=== PATIENT | female | born 1985 | race Caucasian/White ===

== ENCOUNTER 2020-06-17 14:51 | Observation (INO) | payer MEDICAID ==
[2020-06-17] MEDS ORDERED: Sodium Chloride 0.9% 10 ML SDV IV PRN (15:01)
[2020-06-17] MEDS ORDERED: Sodium Chloride 0.9% 2.5 ML Syringe FLUSH PRN (15:01)
[2020-06-17] MEDS ORDERED: Sodium Chloride 0.9% 10 ML Syringe FLUSH PRN (15:01)
[2020-06-17] MEDS ORDERED: Acetaminophen 500 MG Tab PO PRN (15:10)
[2020-06-17] MEDS ORDERED: Lactated Ringers 1,000 ML IV SCH (15:15)
[2020-06-17] MEDS: PRENATAL MULTI PO SCH (19:43)
[2020-06-17] MEDS: DHA PO SCH (19:43)
[2020-06-18 06:30] LABS: BLOOD UREA NITROGEN,BUN 7 mg/dL (7.0-18.0); CARBON DIOXIDE,CO2 20.5 mmol/L (21.0-32.0); CHLORIDE,CL 104 mmol/L (98-107); GLUCOSE RANDOM 126 mg/dL (74-106); POTASSIUM,K 3.6 mmol/L (3.5-5.1); SODIUM,NA 138 mmol/L (136-145)
[2020-06-18] MEDS ORDERED: Magnesium Oxide 400 MG Tab PO SCH (09:00)
[2020-06-18] MEDS ORDERED: Magnesium Oxide 400 MG Tab PO PRN (10:36)
--- NOTE | 2020-06-18 10:50 | PCM.PN ---
- General Info Date of Service: 06/18/20 Functional Status: Reports: Tolerating Diet, Ambulating, Urinating, Other (BP 120-140s/70-80s. Having mild persistent headache, has not improved with tylenol and magnesium. Having stronger contractions starting last night, every 7-10min. ) - Review of Systems General: Reports: Other (headache) HEENT: Reports: No Symptoms Pulmonary: Reports: No Symptoms Cardiovascular: Reports: No Symptoms Gastrointestinal: Reports: No Symptoms Genitourinary: Reports: No Symptoms Musculoskeletal: Reports: No Symptoms Skin: Reports: No Symptoms Neurological: Reports: No Symptoms Psychiatric: Reports: No Symptoms - Patient Data Weight - Most Recent: 194 lb 11.2 oz I&O - Last 24 Hours: Intake & Output 06/17/20 06/18/20 06/18/20 22:59 06:59 14:59 Intake Total 1056 570 Output Total 845 150 Balance 211 420 Lab Results Last 24 Hours: Laboratory Results - last 24 hr 06/17/20 06/18/20 06/18/20 Range/Units 14:58 05:39 05:39 WBC 14.79 H (4.0-11.0) K/uL RBC 3.93 L (4.30-5.90) M/uL Hgb 11.6 L (12.0-16.0) g/dL Hct 37.1 (36.0-46.0) % MCV 94.4 (80.0-98.0) fL MCH 29.5 (27.0-32.0) pg MCHC 31.3 (31.0-37.0) g/dL RDW Std Deviation 57.6 (28.0-62.0) fl RDW Coeff of Jonelle 17 H (11.0-15.0) % Plt Count 339 (150-400) K/uL MPV 9.30 (7.40-12.00) fL Nucleated RBC % 0.0 /100WBC Nucleated RBCs # 0 K/uL Sodium 138 (136-145) mmol/L Potassium 3.6 (3.5-5.1) mmol/L Chloride 104 (98-107) mmol/L Carbon Dioxide 20.5 L (21.0-32.0) mmol/L BUN 7 (7.0-18.0) mg/dL Creatinine 0.6 (0.6-1.0) mg/dL Est Cr Clr Drug Dosing 105.48 mL/min Estimated GFR (MDRD) > 60.0 ml/min Glucose 126 H (74-106) mg/dL Uric Acid 3.9 (2.6-7.2) mg/dL Calcium 9.0 (8.5-10.1) mg/dL Total Bilirubin 0.8 (0.2-1.0) mg/dL AST 13 L (15-37) IU/L ALT 13 L (14-63) IU/L Alkaline Phosphatase 117 H (46-116) U/L Total Protein 6.5 (6.4-8.2) g/dL Albumin 2.8 L (3.4-5.0) g/dL Globulin 3.7 (2.6-4.0) g/dL Albumin/Globulin Ratio 0.8 L (0.9-1.6) Ur Random Creatinine mg/dL U Random Total Protein (<11.9) mg/dL Protein/Creatinin Ratio COVID-19 (SAUL) NEGATIVE (NEGATIVE) 06/18/20 Range/Units 06:25 WBC (4.0-11.0) K/uL RBC (4.30-5.90) M/uL Hgb (12.0-16.0) g/dL Hct (36.0-46.0) % MCV (80.0-98.0) fL MCH (27.0-32.0) pg MCHC (31.0-37.0) g/dL RDW Std Deviation (28.0-62.0) fl RDW Coeff of Jonelle (11.0-15.0) % Plt Count (150-400) K/uL MPV (7.40-12.00) fL Nucleated RBC % /100WBC Nucleated RBCs # K/uL Sodium (136-145) mmol/L Potassium (3.5-5.1) mmol/L Chloride (98-107) mmol/L Carbon Dioxide (21.0-32.0) mmol/L BUN (7.0-18.0) mg/dL Creatinine (0.6-1.0) mg/dL Est Cr Clr Drug Dosing mL/min Estimated GFR (MDRD) ml/min Glucose (74-106) mg/dL Uric Acid (2.6-7.2) mg/dL Calcium (8.5-10.1) mg/dL Total Bilirubin (0.2-1.0) mg/dL AST (15-37) IU/L ALT (14-63) IU/L Alkaline Phosphatase (46-116) U/L Total Protein (6.4-8.2) g/dL Albumin (3.4-5.0) g/dL Globulin (2.6-4.0) g/dL Albumin/Globulin Ratio (0.9-1.6) Ur Random Creatinine 107.3 mg/dL U Random Total Protein 35.8 H (<11.9) mg/dL Protein/Creatinin Ratio 0.3 COVID-19 (SAUL) (NEGATIVE) Med Orders - Current: Current Medications Acetaminophen (Tylenol Extra Strength) 1,000 mg PO Q6H PRN PRN Reason: Pain Acetaminophen/Butalbital/Caffeine (Fioricet 325-50-40 Mg) 1 tab PO Q8H PRN PRN Reason: Headache Betamethasone Acet/Betameth SodPhos (Celestone Soluspan 6 Mg/Ml) 12 mg IM ONETIME ONE Stop: 06/18/20 14:01 Magnesium Oxide (Magnesium Oxide) 400 mg PO DAILY [facility] Magnesium Oxide (Magnesium Oxide) 400 mg PO BID PRN PRN Reason: Headache Multi 200mg (Dha) 1 each PO DAILY [facility] Last Admin: 06/17/20 19:43 Dose: 1 each Documented by: Sodium Chloride (Saline Flush) 10 ml FLUSH ASDIRECTED PRN PRN Reason: Keep Vein Open Sodium Chloride (Saline Flush) 2.5 ml FLUSH ASDIRECTED PRN PRN Reason: Keep Vein Open Sodium Chloride (Normal Saline) 10 ml IV ASDIRECTED PRN PRN Reason: IV Use - Exam General: Alert, Oriented, Cooperative, No Acute Distress HEENT: Pupils Equal, Pupils Reactive Neck: Supple, Trachea Midline, No JVD Lungs: Normal Respiratory Effort GI/Abdominal Exam: Soft, Non-Tender Back Exam: Normal Inspection, Full Range of Motion Extremities: Normal Inspection, Normal Range of Motion, Non-Tender, Pedal Edema (1+) Skin: Warm, Dry, Intact Wound/Incisions: Healing Well Neurological: No New Focal Deficit Psy/Mental Status: Alert, Normal Affect, Normal Mood Sepsis Event Note - Evaluation Sepsis Screening Result: No Definite Risk - Problem List Review Problem List Initiated/Reviewed/Updated: Yes - My Orders Last 24 Hours: My Active Orders 06/18/20 10:34 Acetaminophen/Butalbital/Caff [Fioricet 325-50-40 MG] 1 tab PO Q8H PRN 06/18/20 10:36 Magnesium Oxide 400 mg PO BID PRN - Assessment Assessment:: 35yo at 36w1d admitted to OBS for preeclampsia without severe features. Stable currently. - Plan Plan:: - BP normotensive to borderline mild range - preeclampsia labs wnl, protein/cr ratio of 0.3, stable from yesterday - has persistent mild headache, on magnesium, will add fioricet PRN - reactive NST - beta #2 today Will continue to monitor closely inpatient.
[2020-06-18] MEDS ORDERED: Betamethasone Acetate/Betamethasone Sod Phosphate 30 MG/5 ML MDV IM ONE (14:00)
[2020-06-18] MEDS: Acetaminophen/Butalbital/Caffeine 325-50-40 MG Tab PO PRN (15:41)
[2020-06-19] MEDS: Acetaminophen/Butalbital/Caffeine 325-50-40 MG Tab PO PRN (00:11)
[2020-06-19] MEDS: PRENATAL MULTI PO SCH (00:12)
[2020-06-19] MEDS: DHA PO SCH (00:12)
--- NOTE | 2020-06-19 08:46 | PCM.PN ---
<Kayla Trimble - Last Filed: 06/19/20 08:46> - General Info Date of Service: 06/19/20 Admission Dx/Problem (Free Text): antepartum pre-eclampsia Subjective Update: C/o dizziness, occasional floaters, fran hsieh contractions, and some nausea Functional Status: Reports: Pain Controlled, Tolerating Diet Pain Score: 8 (headache) - Review of Systems General: Reports: No Symptoms HEENT: Reports: No Symptoms Pulmonary: Reports: No Symptoms Cardiovascular: Reports: No Symptoms Gastrointestinal: Reports: Nausea Genitourinary: Reports: No Symptoms Musculoskeletal: Reports: No Symptoms Skin: Reports: No Symptoms Neurological: Reports: Dizziness, Headache Psychiatric: Reports: No Symptoms - Patient Data Vitals - Most Recent: T 97.5, P 96, R 20, BP 131/73, O2 97% Weight - Most Recent: 194 lb 9.6 oz I&O - Last 24 Hours: Intake & Output 06/18/20 06/19/20 06/19/20 22:59 06:59 14:59 Intake Total 720 1000 Output Total 800 950 Balance -80 50 Med Orders - Current: Current Medications Acetaminophen (Tylenol Extra Strength) 1,000 mg PO Q6H PRN PRN Reason: Pain Last Admin: 06/18/20 22:55 Dose: 1,000 mg Documented by: Acetaminophen/Butalbital/Caffeine (Fioricet 325-50-40 Mg) 1 tab PO Q8H PRN PRN Reason: Headache Last Admin: 06/19/20 00:11 Dose: 1 tab Documented by: Magnesium Oxide (Magnesium Oxide) 400 mg PO DAILY [facility] Last Admin: 06/18/20 14:10 Dose: Not Given Documented by: Multi 200mg (Dha) 1 each PO DAILY [facility] Last Admin: 06/19/20 00:12 Dose: 1 each Documented by: Sodium Chloride (Saline Flush) 10 ml FLUSH ASDIRECTED PRN PRN Reason: Keep Vein Open Sodium Chloride (Saline Flush) 2.5 ml FLUSH ASDIRECTED PRN PRN Reason: Keep Vein Open Sodium Chloride (Normal Saline) 10 ml IV ASDIRECTED PRN PRN Reason: IV Use Discontinued Medications Betamethasone Acet/Betameth SodPhos (Celestone Soluspan 6 Mg/Ml) 12 mg IM ONETIME ONE Stop: 06/18/20 14:01 Last Admin: 06/18/20 13:52 Dose: 12 mg Documented by: Magnesium Oxide (Magnesium Oxide) 400 mg PO BID PRN PRN Reason: Headache - Exam General: Alert, Oriented, Cooperative, No Acute Distress HEENT: Mucous Membr. Moist/[place] Neck: Supple Lungs: Clear to Auscultation Cardiovascular: Regular Rate, Regular Rhythm, No Murmurs GI/Abdominal Exam: Soft, Non-Tender, Other (gravid) (Female) Exam: Deferred Back Exam: Full Range of Motion Extremities: Normal Inspection, Pedal Edema (trace) Peripheral Pulses: 2+: Brachial (L), Brachial (R), Dorsalis Pedis (L), Dorsalis Pedis (R) Skin: Warm, Dry Neurological: No New Focal Deficit, Normal Speech Psy/Mental Status: Alert, Normal Affect, Normal Mood Sepsis Event Note - Evaluation Sepsis Screening Result: No Definite Risk - Problem List & Annotations (1) Pre-eclampsia during in third trimester, antepartum SNOMED Code(s): 125097899, 385363175 Code(s): O14.93 - UNSPECIFIED PRE-ECLAMPSIA, THIRD TRIMESTER Status: Acute Current Visit: Yes - Problem List Review Problem List Initiated/Reviewed/Updated: Yes - Assessment Assessment:: 35yo at 36w2d admitted to OBS for preeclampsia without severe features. Stable currently. - Plan Plan:: - BP normotensive to borderline mild range - preeclampsia labs wnl, protein/cr ratio of 0.3, stable from yesterday - has persistent mild headache, taking fiorcet PRN (last dose 06/19 at 0011) - reactive NST - received beta #2 on 06/18 Will continue to monitor closely inpatient. <Bay Parker - Last Filed: 06/19/20 10:31> - Patient Data I&O - Last 24 Hours: Intake & Output 06/18/20 06/19/20 06/19/20 22:59 06:59 14:59 Intake Total 720 1000 350 Output Total 800 950 Balance -80 50 350 Med Orders - Current: Current Medications Acetaminophen (Tylenol Extra Strength) 1,000 mg PO Q6H PRN PRN Reason: Pain Last Admin: 06/18/20 22:55 Dose: 1,000 mg Documented by: Acetaminophen/Butalbital/Caffeine (Fioricet 325-50-40 Mg) 1 tab PO Q8H PRN PRN Reason: Headache Last Admin: 06/19/20 00:11 Dose: 1 tab Documented by: Magnesium Oxide (Magnesium Oxide) 400 mg PO DAILY [facility] Last Admin: 06/18/20 14:10 Dose: Not Given Documented by: Multi 200mg (Dha) 1 each PO DAILY [facility] Last Admin: 06/19/20 00:12 Dose: 1 each Documented by: Sodium Chloride (Saline Flush) 10 ml FLUSH ASDIRECTED PRN PRN Reason: Keep Vein Open Sodium Chloride (Saline Flush) 2.5 ml FLUSH ASDIRECTED PRN PRN Reason: Keep Vein Open Sodium Chloride (Normal Saline) 10 ml IV ASDIRECTED PRN PRN Reason: IV Use Discontinued Medications Betamethasone Acet/Betameth SodPhos (Celestone Soluspan 6 Mg/Ml) 12 mg IM ONETIME ONE Stop: 06/18/20 14:01 Last Admin: 06/18/20 13:52 Dose: 12 mg Documented by: Magnesium Oxide (Magnesium Oxide) 400 mg PO BID PRN PRN Reason: Headache - My Orders Last 24 Hours: My Active Orders 06/18/20 10:34 Acetaminophen/Butalbital/Caff [Fioricet 325-50-40 MG] 1 tab PO Q8H PRN 06/19/20 10:26 Ready for Discharge [RC] PER UNIT ROUTINE - Plan Plan:: Continues to have persistent headache, which is similar to her baseline headaches. BP has been normotensive. Currently stable for discharge home. Reviewed symptoms of worsening preeclampsia and light activity at home. Scheduled to be seen in office tomorrow.
== END 2020-06-19 11:07 | disposition home or self-care (01) ==
LOC: MW.OB 14:51
PROVIDERS: ADMIT Obstetrics & Gynecology; ATTEND Obstetrics & Gynecology
DX: O14.93 Unspecified pre-eclampsia, third trimester (principal); Z20.828 Contact with and (suspected) exposure to other viral communicable diseases; Z3A.36 36 weeks gestation of pregnancy
CPT/HCPCS: 36415; 59025; 80053; 82570; 84156; 84550; 85027; 87635; 96360; 96372; A9270; G0378; J0702; U0002

== ENCOUNTER 2020-06-24 08:58 | Inpatient (IN) | payer MEDICAID ==
[2020-06-24] MEDS ORDERED: ceFAZolin 2 GM in Premix Bag 1 BAG IV ONE (09:51)
[2020-06-24] MEDS ORDERED: Sodium Chloride 0.9% 10 ML SDV IV PRN (09:51)
[2020-06-24] MEDS ORDERED: Sodium Chloride 0.9% 10 ML Syringe FLUSH PRN (09:51)
[2020-06-24] MEDS ORDERED: Sodium Chloride 0.9% 2.5 ML Syringe FLUSH PRN (09:51)
[2020-06-24] MEDS ORDERED: Morphine PF 10 MG/10 ML SDV ONE (09:57)
[2020-06-24] MEDS ORDERED: Oxytocin 10 Units/1 ML SDV ONE (09:58)
[2020-06-24] MEDS ORDERED: Ondansetron 4 MG/2 ML SDV ONE (09:58)
[2020-06-24] MEDS ORDERED: Ketorolac 30 MG/ML SDV ONE (09:58)
[2020-06-24] MEDS ORDERED: Oxytocin/0.9 % Sodium Chloride 30 UNIT/500 ML BAG IV SCH ×2 (10:00→13:30)
[2020-06-24] MEDS: Lactated Ringers 1,000 ML IV SCH ×2 (10:05→11:50)
[2020-06-24] MEDS ORDERED: Sodium Chloride 0.9% 20 ML ONE (10:08)
[2020-06-24] MEDS ORDERED: ceFAZolin 1 GM Vial ONE (10:08)
--- NOTE | 2020-06-24 11:25 | PCM.PREANE ---
Preanesthetic Assessment - Anesthesia/Transfusion/Family Hx Anesthesia History: Prior Anesthesia Without Reaction Family History of Anesthesia Reaction: No Transfusion History: No Prior Transfusion(s) - Review of Systems General: No Symptoms Pulmonary: No Symptoms Cardiovascular: No Symptoms Gastrointestinal: No Symptoms Neurological: No Symptoms Other: Reports: None - Physical Assessment NPO Status Date: 06/23/20 Height: 5 ft 2 in Weight: 87.09 kg ASA Class: 2 Mental Status: Alert & Oriented x3 Airway Class: Mallampati = 2 Dentition: Reports: Normal Dentition ROM/Head Extension: Full Lungs: Clear to Auscultation, Normal Respiratory Effort Cardiovascular: Regular Rate, Regular Rhythm - Lab Values: Laboratory Last Values WBC 10.98 K/uL (4.0-11.0) 06/24/20 09:16 RBC 4.17 M/uL (4.30-5.90) L 06/24/20 09:16 Hgb 12.3 g/dL (12.0-16.0) 06/24/20 09:16 Hct 39.1 % (36.0-46.0) 06/24/20 09:16 MCV 93.8 fL (80.0-98.0) 06/24/20 09:16 MCH 29.5 pg (27.0-32.0) 06/24/20 09:16 MCHC 31.5 g/dL (31.0-37.0) 06/24/20 09:16 RDW Std Deviation 55.5 fl (28.0-62.0) 06/24/20 09:16 RDW Coeff of Jonelle 16 % (11.0-15.0) H 06/24/20 09:16 Plt Count 359 K/uL (150-400) 06/24/20 09:16 MPV 9.50 fL (7.40-12.00) 06/24/20 09:16 Nucleated RBC % 0.0 /100WBC 06/24/20 09:16 Nucleated RBCs # 0 K/uL 06/24/20 09:16 Blood Type A NEGATIVE 06/24/20 09:16 Antibody Screen NEGATIVE 06/24/20 09:16 - Allergies Allergies/Adverse Reactions: Allergies Allergy/AdvReac Type Severity Reaction Status Date / Time latex Allergy Hives Verified 06/22/20 08:25 Sulfa (Sulfonamide Allergy Hives Verified 06/22/20 08:25 Antibiotics) dissolvable stitch Allergy Swelling Uncoded 06/22/20 09:06 - Blood Blood Available: No - Anesthesia Plan Pre-Op Medication Ordered: None - Acknowledgements Anesthesia Type Planned: General Anesthesia, Spinal Pt an Appropriate Candidate for the Planned Anesthesia: Yes Alternatives and Risks of Anesthesia Discussed w Pt/Guardian: Yes Pt/Guardian Understands and Agrees with Anesthesia Plan: Yes Additional Comments: 37 wks with elevated blood pressures and proteinuria PreAnesthesia Questionnaire HEENT History: Reports: None Cardiovascular History: Reports: Other (See Below) Other Cardiovascular History: elevated BP due to pre-eclampsia Respiratory History: Reports: None Gastrointestinal History: Reports: Other (See Below) Other Gastrointestinal History: gastric ulcer, hepatic hemangioma Genitourinary History: Reports: None [employer] History: Reports: Musculoskeletal History: Reports: None Neurological History: Reports: Migraines Psychiatric History: Reports: Depression, PTSD, Other (See Below) Other Psychiatric History: 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 28 weeks Endocrine/Metabolic History: Reports: Obesity/BMI 30+ Hematologic History: Reports: Anemia Immunologic History: Reports: None Oncologic (Cancer) History: Reports: None Dermatologic History: Reports: Eczema - Infectious Disease History Infectious Disease History: Reports: Chicken Pox, Human Papilloma Virus (HPV), Mononucleosis - Past Surgical History Head Surgeries/Procedures: Reports: None HEENT Surgical History: Reports: Oral Surgery, Other (See Below) Other HEENT Surgeries/Procedures: wisdom teeth removal, 2002 or 2003 Cardiovascular Surgical History: Reports: None Respiratory Surgical History: Reports: None GI Surgical History: Reports: Cholecystectomy, Other (See Below) Other GI Surgeries/Procedures: repair of perforated gastric ulcer Female Surgical History: Reports: Section Endocrine Surgical History: Reports: None Neurological Surgical History: Reports: None Musculoskeletal Surgical History: Reports: None Oncologic Surgical History: Reports: None Dermatological Surgical History: Reports: None - SUBSTANCE USE Smoking Status *Q: Never Smoker - HOME MEDS Home Medications: Home Meds Acetaminophen [Tylenol Extra Strength] 1,000 mg PO Q6H PRN tablet 06/19/20 [Rx] Magnesium Oxide [Magnesium] 400 mg PO DAILY 06/22/20 [History] Pnv No.95/Ferrous Fum/Folic AC [ Vitamin Tablet] 1 tab PO DAILY 06/22/20 [History] - CURRENT (IN HOUSE) MEDS Current Meds: Current Medications Citric Acid/Sodium Citrate (Bicitra Solution) 30 ml PO ONETIME ONE Stop: 06/24/20 12:01 Oxytocin/Sodium Chloride (Oxytocin 30 Unit/500 Ml-Ns) 30 unit in 500 mls @ 250 mls/hr IV TITRATE ELISABETH Lactated Ringer's (Ringers, Lactated) 1,000 mls @ 500 mls/hr IV BOLUS ELISABETH Last Admin: 06/24/20 10:05 Dose: 500 mls/hr Documented by: Sodium Chloride (Saline Flush) 10 ml FLUSH ASDIRECTED PRN PRN Reason: Keep Vein Open Sodium Chloride (Saline Flush) 2.5 ml FLUSH ASDIRECTED PRN PRN Reason: Keep Vein Open Sodium Chloride (Normal Saline) 10 ml IV ASDIRECTED PRN PRN Reason: IV Use Discontinued Medications Cefazolin Sodium (Ancef) Confirm Administered Dose 2 gm .ROUTE .STK-MED ONE Stop: 06/24/20 10:09 Cefazolin Sodium/Dextrose 2 gm (/ Premix) 50 mls @ 100 mls/hr IV ONETIME ONE Stop: 06/24/20 10:20 Sodium Chloride (Normal Saline) Confirm Administered Dose 20 mls @ as directed .ROUTE .STK-MED ONE Stop: 06/24/20 10:09 Ketorolac Tromethamine (Toradol) Confirm Administered Dose 30 mg .ROUTE .STK-MED ONE Stop: 06/24/20 09:59 Morphine Sulfate (Duramorph Pf) Confirm Administered Dose 10 mg .ROUTE .STK-MED ONE Stop: 06/24/20 09:58 Ondansetron HCl (Zofran) Confirm Administered Dose 4 mg .ROUTE .STK-MED ONE Stop: 06/24/20 09:59 Oxytocin (Pitocin) Confirm Administered Dose 20 unit .ROUTE .STK-MED ONE Stop: 06/24/20 09:59
[2020-06-24] MEDS ORDERED: Citric Acid/Sodium Citrate Solution 30 ML Cup PO ONE (12:00)
[2020-06-24] MEDS ORDERED: fentaNYL 100 MCG/2 ML SDV IVPUSH PRN (12:08)
[2020-06-24] MEDS ORDERED: Nalbuphine 10 MG/1 ML Vial IVPUSH PRN (12:08)
[2020-06-24] MEDS ORDERED: Acetaminophen/oxyCODONE 325-5 MG Tab PO PRN ×2 (12:08→13:28)
[2020-06-24] MEDS ORDERED: Propofol 200 MG/20 ML SDV ONE (12:38)
[2020-06-24] MEDS ORDERED: Midazolam 1 MG/ML 2 ML SDV ONE (12:46)
[2020-06-24] MEDS ORDERED: Ketamine 500 mg/10 ML MDV ONE (12:52)
[2020-06-24] MEDS ORDERED: Tranexamic Acid 1,000 MG in Sodium Chloride 0.9% 100 ML IV PRN (13:28)
[2020-06-24] MEDS ORDERED: diphenhydrAMINE 50 MG/ML SDV IVPUSH PRN (13:28)
[2020-06-24] MEDS ORDERED: Oxytocin 10 Units/1 ML SDV IM PRN (13:28)
[2020-06-24] MEDS ORDERED: Ondansetron 4 MG/2 ML SDV IVPUSH PRN (13:28)
[2020-06-24] MEDS ORDERED: Misoprostol 200 MCG Tab RECTAL PRN (13:28)
[2020-06-24] MEDS ORDERED: Lanolin 100% Cream 7 GM Tube TOP PRN (13:28)
[2020-06-24] MEDS ORDERED: Bisacodyl 10 MG Supp RECTAL PRN (13:28)
[2020-06-24] MEDS ORDERED: Methylergonovine 0.2 MG/1 ML Amp IM PRN (13:28)
[2020-06-24] MEDS ORDERED: Lactated Ringers 1,000 ML IV SCH (13:30)
[2020-06-24] MEDS ORDERED: Magnesium Sulfate/Water 4 GM in Premix Bag 1 BAG IV ONE (13:31)
[2020-06-24] MEDS ORDERED: Calcium Gluconate 10% 1 GM/10 ML SDV IV PRN (13:31)
--- NOTE | 2020-06-24 14:01 | PCM.POSTAN ---
POST ANESTHESIA ASSESSMENT - MENTAL STATUS Mental Status: Alert - VITAL SIGNS Vital Signs: Last Vital Signs Temp 36.2 C 06/24/20 13:25 Pulse 90 06/24/20 14:00 Resp 18 06/24/20 14:00 BP 138/87 06/24/20 14:00 Pulse Ox 97 06/24/20 14:00 - RESPIRATORY Respiratory Status: Respiratory Rate WNL - CARDIOVASCULAR CV Status: Pulse Rate WNL - GASTROINTESTINAL GI Status: No Symptoms - POST OP HYDRATION Hydration Status: Adequate & Stable
[2020-06-24] MEDS: Magnesium Sulfate/Water 20 GM/500 ML BAG IV SCH (15:31)
--- NOTE | 2020-06-24 17:44 | OR ---
SURGEON: Katy Everett M.D. DATE OF PROCEDURE: 06/24/2020 PREOPERATIVE DIAGNOSES: A 37-week intrauterine , preeclampsia, prior sections x2, liver hemangioma. POSTOPERATIVE DIAGNOSES: A 37-week intrauterine , preeclampsia, prior sections x2, liver hemangioma. PROCEDURE: Repeat low transverse section. PRIMARY SURGEON: Katy Everett MD PROFESSOR OF PATHOLOGY: Joaquim Cuba MS4 ANESTHESIA: Spinal. ESTIMATED BLOOD LOSS: 600 mL. FLUIDS: 1500 mL of crystalloid. URINE OUTPUT: 600 mL. FINDINGS: Liveborn male, score of 8 and 9, weighing 2930 g. Normal-appearing uterus, tubes, and ovaries. There was a thin section on the uterus in the anterior lower uterine segment from prior , which was utilized for this . Otherwise, normal-appearing uterus and pelvis. COMPLICATIONS: None known. DISPOSITION: Stable to Recovery. BRIEF HISTORY: This is a 35-year-old female. She is G3, P 1103. She presents at 37-0/7 weeks' gestation, having had elevated blood pressures, elevated protein- creatinine ratio up to 0.4 over the past week along with a headache. Other preeclamptic labs were normal. Her headache was persistent. She has had labile blood pressures in the 140s over 80s to 90s. She was placed inpatient last weekend and received steroids. She was discharged as with rest her blood pressure did improve, although she continued to have a headache and presents at 37 weeks for repeat low transverse section with risks discussed including bleeding; infection; injury to bowel, bladder, blood vessels, ureters, or other organs; risk of thromboembolic event; and risk of anesthesia. Understanding all these risks, she does desire to proceed. DESCRIPTION OF PROCEDURE: With the patient in left tilt position, under adequate spinal analgesia, the abdomen was prepped with chlorhexidine and draped in usual fashion for abdominal surgery. SCDs were in place. Evans catheter had been placed. An appropriate time-out was held. After documentation of adequate analgesia, the prior cicatrix was excised and the incision was carried through the subcutaneous tissue to the fascia, which was scored transversely in the midline. The fascial incision was extended using curved Newby scissors and then from the underlying rectus muscle using sharp and blunt dissection. The rectus muscles were in the midline using a hemostat. Finger was used to enter the peritoneal cavity. There were no adhesions. The incision was extended cephalad and caudad using sharp and blunt dissection. The Sebastián O retractor was placed. The prior incision was on the anterior uterus in the upper-lower uterine segment and was fairly thin. This area was incised transversely and a finger was used to enter the peritoneal cavity. An anterior placenta was noted and the incision was extended below the level of the lower aspect of the placenta. Amniotic membranes were ruptured, clear fluid was noted. head was delivered. The infant was bulb suctioned by nose and mouth. After a minute, the cord was clamped x2 and cut, and the was handed to the nurse in attendance at delivery. The infant was a liveborn male, score of 8 and 9, weighing 2930 g. Cord blood was collected for cord ABGs as well as routine cord blood sampling. Pitocin was initiated after delivery of the infant to assist with the placenta, which was delivered with manual extraction. The uterus was cleaned with a dry laparotomy tape. The patient at this point was experiencing significant discomfort, and Anesthesia gave her IV pain medication, and she tolerated the rest of the procedure well. The cervix was opened with ring forceps. The uterine incision was closed with a running lock suture of 0 Polysorb followed by an imbricating layer of 0 Polysorb. The posterior cul-de-sac, paracolic gutters were cleaned with a wet laparotomy tape. Tubes and ovaries were inspected and appeared normal. Uterine incision was inspected and was hemostatic. The Sebastián O retractor was removed and the incision was again inspected, it remained hemostatic. Therefore, the rectus muscle and peritoneum were loosely approximated in the midline using running mattress suture of 0 Polysorb. The posterior aspect of the fascia was inspected and any areas of bleeding that were noted were cauterized. The fascial incision was closed with running suture of 0 Polysorb. The subcutaneous tissue was irrigated. Any areas of bleeding that were noted were cauterized. The skin was closed with a running subcuticular suture of 3-0 Monocryl. No Dermabond or Steri-Strips were placed due to the patient's sensitivity to latex as well as sometimes adhesives, and the incision was dressed. Final sponge, needle, and instrument counts were reported as correct. There were no known complications. Mother and baby are in Recovery in good condition. TAINA NICHOLE /[id number] BILL
--- NOTE | 2020-06-24 17:49 | PCM.OPNOTE ---
- General Post-Op/Procedure Note Date of Surgery/Procedure: 06/24/20 Operative Procedure(s): Repeat LTCS Findings: Viable male infant, APGARs 8/9 at 1 and 5 min. weight 2930 g, anterior portion of uterus showed scarring from prior , ovaries, tubes, and uterus were otherwise normal Pre Op Diagnosis: 37-week intrauterine pregnancyy. Repeat done at this time due to preeclampsia (BP of 140s/80s-90s and protein/Cr ratio of 0.4) and persistent headache. Post-Op Diagnosis: Same Anesthesia Technique: Spinal Primary Surgeon: Katy Everett Anesthesia Provider: Wolf Phillip Alternative Financing Specialist: Joaquim Cuba Fluid Replacement, Intraop: 1,500 Output, Urine Amount: 600 EBL in mLs: 600 Complications: None Condition: Stable Free Text/Narrative:: Intake & Output 06/24/20 06/24/20 06/24/20 06:59 14:59 22:59 Intake Total 800 Output Total 1900 Balance -1100
[2020-06-24] MEDS: Ketorolac 30 MG/ML SDV IVPUSH SCH (19:44)
[2020-06-24] MEDS: Docusate Sodium 100 MG Cap PO SCH (21:15)
[2020-06-25] MEDS: Magnesium Sulfate/Water 20 GM/500 ML BAG IV SCH (01:47)
[2020-06-25] MEDS: Ketorolac 30 MG/ML SDV IVPUSH SCH ×5 (01:49→15:13)
--- NOTE | 2020-06-25 07:52 | PCM48HPAN ---
Post Anesthesia Note - EVALUATION WITHIN 48HRS OF ANESTHETIC Vital Signs in Normal Range: Yes Patient Participated in Evaluation: Yes Respiratory Function Stable: Yes Airway Patent: Yes Cardiovascular Function Stable: Yes Hydration Status Stable: Yes Pain Control Satisfactory: Yes Nausea and Vomiting Control Satisfactory: Yes Mental Status Recovered: Yes Vital Signs: Last Vital Signs Temp 36.3 C 06/25/20 00:10 Pulse 100 06/25/20 00:10 Resp 14 06/25/20 00:10 BP 108/60 06/25/20 00:10 Pulse Ox 92 L 06/25/20 00:10
[2020-06-25] MEDS: Docusate Sodium 100 MG Cap PO SCH ×2 (08:16→21:07)
--- NOTE | 2020-06-25 08:49 | PCM.PNPP ---
<Joaquim Cuba - Last Filed: 06/25/20 08:53> - General Info Date of Service: 06/25/20 Functional Status: Reports: Tolerating Diet Pain Score: 4 (Pain is 4/10 with her pain medication (6-7/10 without meds), pain localized to incision site, does not radiate anywhere else. ) - Review of Systems General: Reports: No Symptoms HEENT: Reports: No Symptoms, Contact Lenses Pulmonary: Reports: No Symptoms Cardiovascular: Reports: No Symptoms Gastrointestinal: Reports: No Symptoms Genitourinary: Reports: No Symptoms Musculoskeletal: Reports: No Symptoms Skin: Reports: No Symptoms Neurological: Reports: No Symptoms Psychiatric: Reports: No Symptoms - General Info Date of Service: 06/25/20 - Patient Data Vital Signs - Most Recent: Last Vital Signs Temp 36.2 C 06/25/20 08:00 Pulse 100 06/25/20 08:00 Resp 16 06/25/20 08:00 BP 110/70 06/25/20 08:00 Pulse Ox 93 L 06/25/20 08:00 Weight - Most Recent: 87.09 kg I&O - Last 24 Hours: Intake & Output 06/24/20 06/25/20 06/25/20 22:59 06:59 14:59 Intake Total 1500 2 600 Output Total 600 700 Balance 900 2 -100 Lab Results - Last 24 Hours: Laboratory Results - last 24 hr 06/24/20 06/24/20 06/24/20 Range/Units 09:16 09:16 12:41 WBC 10.98 (4.0-11.0) K/uL RBC 4.17 L (4.30-5.90) M/uL Hgb 12.3 (12.0-16.0) g/dL Hct 39.1 (36.0-46.0) % MCV 93.8 (80.0-98.0) fL MCH 29.5 (27.0-32.0) pg MCHC 31.5 (31.0-37.0) g/dL RDW Std Deviation 55.5 (28.0-62.0) fl RDW Coeff of Jonelle 16 H (11.0-15.0) % Plt Count 359 (150-400) K/uL MPV 9.50 (7.40-12.00) fL Nucleated RBC % 0.0 /100WBC Nucleated RBCs # 0 K/uL Cord ABG pH 7.302 (7.18-7.38) Cord ABG Base Excess -3 (-10--2) Cord VBG pH 7.372 (7.25-7.45) Cord VBG Base Excess -3 (-10--2) Magnesium (1.8-2.4) mg/dL Blood Type A NEGATIVE Antibody Screen NEGATIVE Screen (NEGATIVE) RhIG Candidate? Rhogam Indicated 06/24/20 06/24/20 06/25/20 Range/Units 14:23 19:32 01:45 WBC (4.0-11.0) K/uL RBC (4.30-5.90) M/uL Hgb (12.0-16.0) g/dL Hct (36.0-46.0) % MCV (80.0-98.0) fL MCH (27.0-32.0) pg MCHC (31.0-37.0) g/dL RDW Std Deviation (28.0-62.0) fl RDW Coeff of Jonelle (11.0-15.0) % Plt Count (150-400) K/uL MPV (7.40-12.00) fL Nucleated RBC % /100WBC Nucleated RBCs # K/uL Cord ABG pH (7.18-7.38) Cord ABG Base Excess (-10--2) Cord VBG pH (7.25-7.45) Cord VBG Base Excess (-10--2) Magnesium 4.3 H 4.8 H (1.8-2.4) mg/dL Blood Type Antibody Screen Screen NEGATIVE (NEGATIVE) RhIG Candidate? YES Rhogam Indicated YES, BABY RH POS H 06/25/20 06/25/20 Range/Units 07:40 07:40 WBC (4.0-11.0) K/uL RBC (4.30-5.90) M/uL Hgb 10.5 L (12.0-16.0) g/dL Hct 33.6 L (36.0-46.0) % MCV (80.0-98.0) fL MCH (27.0-32.0) pg MCHC (31.0-37.0) g/dL RDW Std Deviation (28.0-62.0) fl RDW Coeff of Jonelle (11.0-15.0) % Plt Count (150-400) K/uL MPV (7.40-12.00) fL Nucleated RBC % /100WBC Nucleated RBCs # K/uL Cord ABG pH (7.18-7.38) Cord ABG Base Excess (-10--2) Cord VBG pH (7.25-7.45) Cord VBG Base Excess (-10--2) Magnesium 5.2 H (1.8-2.4) mg/dL Blood Type Antibody Screen Screen (NEGATIVE) RhIG Candidate? Rhogam Indicated Med Orders - Current: Current Medications Bisacodyl (Dulcolax) 10 mg RECTAL ONETIME PRN PRN Reason: Constipation Calcium Gluconate (Calcium Gluconate) 1 gm IV ASDIRECTED PRN PRN Reason: respiratory distress Diphenhydramine HCl (Benadryl) 25 mg IVPUSH Q6H PRN PRN Reason: Itching or Nausea Docusate Sodium (Colace) [address] [facility] Last Admin: 06/25/20 08:16 Dose: 100 mg Documented by: Emollient Ointment (Lansinoh Hpa) 0 gm TOP ASDIRECTED PRN PRN Reason: Sore Nipples Fentanyl (Sublimaze) 50 mcg IVPUSH Q5M PRN PRN Reason: Pain (severe 7-10) Stop: 06/25/20 12:08 Lactated Ringer's (Ringers, Lactated) 1,000 mls @ 125 mls/hr IV ASDIRECTED [facility] Last Admin: 06/24/20 15:14 Dose: 5 mls/hr Documented by: Oxytocin/Sodium Chloride (Oxytocin 30 Unit/500 Ml-Ns) 30 unit in 500 mls @ 999 mls/hr IV TITRATE [facility]; Protocol Tranexamic Acid 1,000 mg/ (Sodium Chloride) 110 mls @ 660 mls/hr IV ONETIME PRN PRN Reason: Bleeding Magnesium Sulfate (Magnesium Sulfate In Water Premix) 20 gm in 500 mls @ 50 mls/hr IV ASDIRECTED [facility]; Protocol Last Admin: 06/25/20 01:47 Dose: 2 gm/hr, 50 mls/hr Documented by: Ibuprofen (Motrin) 800 mg PO Q8H PRN PRN Reason: mild pain or fever Ketorolac Tromethamine (Toradol) 30 mg IVPUSH Q6H ELISABETH Stop: 06/25/20 13:31 Last Admin: 06/25/20 08:16 Dose: 30 mg Documented by: Misoprostol (Cytotec) 1,000 mcg RECTAL ONETIME PRN PRN Reason: excessive bleeding Nalbuphine HCl (Nubain) 2.5 mg IVPUSH Q3H PRN PRN Reason: Pruritis Stop: 06/25/20 12:09 Ondansetron HCl (Zofran) 4 mg IVPUSH Q4H PRN PRN Reason: Nausea/Vomiting Oxycodone/Acetaminophen (Percocet 325-5 Mg) 1 tab PO ONETIME PRN PRN Reason: Pain (moderate 4-6) Oxycodone/Acetaminophen (Percocet 325-5 Mg) 1 tab PO Q4H PRN PRN Reason: Pain (moderate 4-6) Oxycodone/Acetaminophen (Percocet 325-5 Mg) 2 tab PO Q4H PRN PRN Reason: Pain (moderate 4-6) Oxytocin (Pitocin) 10 unit IM ASDIRECTED PRN PRN Reason: Excessive Vaginal Bleeding Discontinued Medications Cefazolin Sodium (Ancef) Confirm Administered Dose 2 gm .ROUTE .STK-MED ONE Stop: 06/24/20 10:09 Citric Acid/Sodium Citrate (Bicitra Solution) 30 ml PO ONETIME ONE Stop: 06/24/20 12:01 Last Admin: 06/24/20 15:37 Dose: Not Given Documented by: Oxytocin/Sodium Chloride (Oxytocin 30 Unit/500 Ml-Ns) 30 unit in 500 mls @ 250 mls/hr IV TITRATE [facility] Cefazolin Sodium/Dextrose 2 gm (/ Premix) 50 mls @ 100 mls/hr IV ONETIME ONE Stop: 06/24/20 10:20 Last Admin: 06/24/20 15:37 Dose: Not Given Documented by: Lactated Ringer's (Ringers, Lactated) 1,000 mls @ 500 mls/hr IV BOLUS [facility] Last Admin: 06/24/20 11:50 Dose: 500 mls/hr Documented by: Sodium Chloride (Normal Saline) Confirm Administered Dose 20 mls @ as directed .ROUTE .STK-MED ONE Stop: 06/24/20 10:09 Magnesium Sulfate 4 gm/ Premix 100 mls @ 300 mls/hr IV BOLUS ONE Stop: 06/24/20 13:50 Last Admin: 06/24/20 15:14 Dose: 400 mls/hr Documented by: Ketamine HCl (Ketalar) Confirm Administered Dose 500 mg .ROUTE .STK-MED ONE Stop: 06/24/20 12:53 Ketorolac Tromethamine (Toradol) Confirm Administered Dose 30 mg .ROUTE .STK-MED ONE Stop: 06/24/20 09:59 Methylergonovine Maleate (Methergine) 0.2 mg IM ONETIME PRN PRN Reason: Excessive Vaginal Bleeding Midazolam HCl (Versed 1 Mg/Ml) Confirm Administered Dose 2 mg .ROUTE .STK-MED ONE Stop: 06/24/20 12:47 Morphine Sulfate (Duramorph Pf) Confirm Administered Dose 10 mg .ROUTE .STK-MED ONE Stop: 06/24/20 09:58 Ondansetron HCl (Zofran) Confirm Administered Dose 4 mg .ROUTE .STK-MED ONE Stop: 06/24/20 09:59 Oxytocin (Pitocin) Confirm Administered Dose 20 unit .ROUTE .STK-MED ONE Stop: 06/24/20 09:59 Propofol (Diprivan 20 Ml) Confirm Administered Dose 200 mg .ROUTE .STK-MED ONE Stop: 06/24/20 12:39 Sodium Chloride (Saline Flush) 10 ml FLUSH ASDIRECTED PRN PRN Reason: Keep Vein Open Sodium Chloride (Saline Flush) 2.5 ml FLUSH ASDIRECTED PRN PRN Reason: Keep Vein Open Sodium Chloride (Normal Saline) 10 ml IV ASDIRECTED PRN PRN Reason: IV Use - Interaction Infant Disposition, : [place] in Room with Family Interaction: Other (see below) (Nurse assessing baby at this time) Infant Feeding: Bottle Fed Infant Support Person: , Significant Other - Recovery Exam Fundal Tone: Firm Fundal Level: 2 Fingerbreadths Below Umbilicus Fundal Placement: Midline Lochia Amount: Scant Lochia Color: Rubra/Red Perineum Description: Intact, Minimal Bruising/Swelling Episiotomy/Laceration: None Bladder Status: Voiding, Indwelling Catheter in Place Urinary Elimination: Indwelling Catheter - Exam General: Alert, Oriented, Cooperative HEENT: Pupils Equal, Pupils Reactive, Mucous Membr. Moist/[place] Neck: Supple, Trachea Midline, No JVD, No Thyromegaly Lungs: Clear to Auscultation, Normal Respiratory Effort Cardiovascular: Regular Rate, Regular Rhythm, No Murmurs GI/Abdominal Exam: Normal Bowel Sounds, Soft, Non-Tender, Other (Tender to palpation at lower abdomen near incision site, no rebound tenderness) Extremities: Normal Inspection, Normal Capillary Refill, Other (Mild pedal edema) Skin: Warm, Moist Wound/Incisions: Healing Well Neurological: No New Focal Deficit Psy/Mental Status: Alert, Normal Affect, Normal Mood - Problem List Review Problem List Initiated/Reviewed/Updated: Yes - Assessment Assessment:: PPD # 1 s/p repeat LTCS at 37 weeks due to preeclampsia (BP of 140s/80s-90s and protein/Cr ratio of 0.4) and persistent headache. - Plan Plan:: -Continue current care <Layne Sorto - Last Filed: 06/25/20 10:30> - Patient Data Vital Signs - Most Recent: Last Vital Signs Temp 36.2 C 06/25/20 08:00 Pulse 100 06/25/20 08:00 Resp 16 06/25/20 08:00 BP 110/70 06/25/20 08:00 Pulse Ox 93 L 06/25/20 08:00 I&O - Last 24 Hours: Intake & Output 06/24/20 06/25/20 06/25/20 22:59 06:59 14:59 Intake Total 1500 2 600 Output Total 600 700 Balance 900 2 -100 Lab Results - Last 24 Hours: Laboratory Results - last 24 hr 06/24/20 06/24/20 06/24/20 Range/Units 09:16 12:41 14:23 Hgb (12.0-16.0) g/dL Hct (36.0-46.0) % Cord ABG pH 7.302 (7.18-7.38) Cord ABG Base Excess -3 (-10--2) Cord VBG pH 7.372 (7.25-7.45) Cord VBG Base Excess -3 (-10--2) Magnesium (1.8-2.4) mg/dL Blood Type A NEGATIVE Antibody Screen NEGATIVE Screen NEGATIVE (NEGATIVE) RhIG Candidate? YES Rhogam Indicated YES, BABY RH POS H 06/24/20 06/25/20 06/25/20 Range/Units 19:32 01:45 07:40 Hgb 10.5 L (12.0-16.0) g/dL Hct 33.6 L (36.0-46.0) % Cord ABG pH (7.18-7.38) Cord ABG Base Excess (-10--2) Cord VBG pH (7.25-7.45) Cord VBG Base Excess (-10--2) Magnesium 4.3 H 4.8 H (1.8-2.4) mg/dL Blood Type Antibody Screen Screen (NEGATIVE) RhIG Candidate? Rhogam Indicated 06/25/20 Range/Units 07:40 Hgb (12.0-16.0) g/dL Hct (36.0-46.0) % Cord ABG pH (7.18-7.38) Cord ABG Base Excess (-10--2) Cord VBG pH (7.25-7.45) Cord VBG Base Excess (-10--2) Magnesium 5.2 H (1.8-2.4) mg/dL Blood Type Antibody Screen Screen (NEGATIVE) RhIG Candidate? Rhogam Indicated Med Orders - Current: Current Medications Bisacodyl (Dulcolax) 10 mg RECTAL ONETIME PRN PRN Reason: Constipation Calcium Gluconate (Calcium Gluconate) 1 gm IV ASDIRECTED PRN PRN Reason: respiratory distress Diphenhydramine HCl (Benadryl) 25 mg IVPUSH Q6H PRN PRN Reason: Itching or Nausea Docusate Sodium (Colace) [address] [facility] Last Admin: 06/25/20 08:16 Dose: 100 mg Documented by: Emollient Ointment (Lansinoh Hpa) 0 gm TOP ASDIRECTED PRN PRN Reason: Sore Nipples Fentanyl (Sublimaze) 50 mcg IVPUSH Q5M PRN PRN Reason: Pain (severe 7-10) Stop: 06/25/20 12:08 Lactated Ringer's (Ringers, Lactated) 1,000 mls @ 125 mls/hr IV ASDIRECTED [facility] Last Admin: 06/24/20 15:14 Dose: 5 mls/hr Documented by: Oxytocin/Sodium Chloride (Oxytocin 30 Unit/500 Ml-Ns) 30 unit in 500 mls @ 999 mls/hr IV TITRATE [facility]; Protocol Tranexamic Acid 1,000 mg/ (Sodium Chloride) 110 mls @ 660 mls/hr IV ONETIME PRN PRN Reason: Bleeding Magnesium Sulfate (Magnesium Sulfate In Water Premix) 20 gm in 500 mls @ 50 mls/hr IV ASDIRECTED [facility]; Protocol Last Admin: 06/25/20 01:47 Dose: 2 gm/hr, 50 mls/hr Documented by: Ibuprofen (Motrin) 800 mg PO Q8H PRN PRN Reason: mild pain or fever Ketorolac Tromethamine (Toradol) 30 mg IVPUSH Q6H ELISABETH Stop: 06/25/20 13:31 Last Admin: 06/25/20 08:16 Dose: 30 mg Documented by: Misoprostol (Cytotec) 1,000 mcg RECTAL ONETIME PRN PRN Reason: excessive bleeding Nalbuphine HCl (Nubain) 2.5 mg IVPUSH Q3H PRN PRN Reason: Pruritis Stop: 06/25/20 12:09 Ondansetron HCl (Zofran) 4 mg IVPUSH Q4H PRN PRN Reason: Nausea/Vomiting Oxycodone/Acetaminophen (Percocet 325-5 Mg) 1 tab PO ONETIME PRN PRN Reason: Pain (moderate 4-6) Oxycodone/Acetaminophen (Percocet 325-5 Mg) 1 tab PO Q4H PRN PRN Reason: Pain (moderate 4-6) Oxycodone/Acetaminophen (Percocet 325-5 Mg) 2 tab PO Q4H PRN PRN Reason: Pain (moderate 4-6) Oxytocin (Pitocin) 10 unit IM ASDIRECTED PRN PRN Reason: Excessive Vaginal Bleeding Discontinued Medications Cefazolin Sodium (Ancef) Confirm Administered Dose 2 gm .ROUTE .STK-MED ONE Stop: 06/24/20 10:09 Citric Acid/Sodium Citrate (Bicitra Solution) 30 ml PO ONETIME ONE Stop: 06/24/20 12:01 Last Admin: 06/24/20 15:37 Dose: Not Given Documented by: Oxytocin/Sodium Chloride (Oxytocin 30 Unit/500 Ml-Ns) 30 unit in 500 mls @ 250 mls/hr IV TITRATE [facility] Cefazolin Sodium/Dextrose 2 gm (/ Premix) 50 mls @ 100 mls/hr IV ONETIME ONE Stop: 06/24/20 10:20 Last Admin: 06/24/20 15:37 Dose: Not Given Documented by: Lactated Ringer's (Ringers, Lactated) 1,000 mls @ 500 mls/hr IV BOLUS [facility] Last Admin: 06/24/20 11:50 Dose: 500 mls/hr Documented by: Sodium Chloride (Normal Saline) Confirm Administered Dose 20 mls @ as directed .ROUTE .STK-MED ONE Stop: 06/24/20 10:09 Magnesium Sulfate 4 gm/ Premix 100 mls @ 300 mls/hr IV BOLUS ONE Stop: 06/24/20 13:50 Last Admin: 06/24/20 15:14 Dose: 400 mls/hr Documented by: Ketamine HCl (Ketalar) Confirm Administered Dose 500 mg .ROUTE .STK-MED ONE Stop: 06/24/20 12:53 Ketorolac Tromethamine (Toradol) Confirm Administered Dose 30 mg .ROUTE .STK-MED ONE Stop: 06/24/20 09:59 Methylergonovine Maleate (Methergine) 0.2 mg IM ONETIME PRN PRN Reason: Excessive Vaginal Bleeding Midazolam HCl (Versed 1 Mg/Ml) Confirm Administered Dose 2 mg .ROUTE .STK-MED ONE Stop: 06/24/20 12:47 Morphine Sulfate (Duramorph Pf) Confirm Administered Dose 10 mg .ROUTE .STK-MED ONE Stop: 06/24/20 09:58 Ondansetron HCl (Zofran) Confirm Administered Dose 4 mg .ROUTE .STK-MED ONE Stop: 06/24/20 09:59 Oxytocin (Pitocin) Confirm Administered Dose 20 unit .ROUTE .STK-MED ONE Stop: 06/24/20 09:59 Propofol (Diprivan 20 Ml) Confirm Administered Dose 200 mg .ROUTE .STK-MED ONE Stop: 06/24/20 12:39 Sodium Chloride (Saline Flush) 10 ml FLUSH ASDIRECTED PRN PRN Reason: Keep Vein Open Sodium Chloride (Saline Flush) 2.5 ml FLUSH ASDIRECTED PRN PRN Reason: Keep Vein Open Sodium Chloride (Normal Saline) 10 ml IV ASDIRECTED PRN PRN Reason: IV Use - Exam Wound/Incisions: Dressing Dry and Intact - Problem List & Annotations (1) Preeclampsia SNOMED Code(s): 634265143 Code(s): O14.90 - UNSPECIFIED PRE-ECLAMPSIA, UNSPECIFIED TRIMESTER Status: Acute Current Visit: Yes (2) S/P repeat low transverse SNOMED Code(s): 232823973, [id number], [id number], 121286349, 277885303 Code(s): Z98.891 - HISTORY OF UTERINE SCAR FROM PREVIOUS SURGERY Status: Acute Current Visit: Yes - Problem List Review Problem List Initiated/Reviewed/Updated: Yes - My Orders Last 24 Hours: My Active Orders 06/24/20 Dinner Regular Diet [DIET] - Plan Plan:: I have reviewed and agree with the above. Patient with mild headache, improved with pain medication.Denies other preeclampsia symptoms. Discontinue magnesium and remove wiggins catheter. Encourage ambulation today. Continue to monitor BP. Likely discharge home tomorrow.
[2020-06-25] MEDS: Acetaminophen/oxyCODONE 325-5 MG Tab PO PRN ×2 (16:57→21:09)
[2020-06-25] MEDS: Ibuprofen 800 MG Tab PO PRN (21:08)
[2020-06-26] MEDS: Acetaminophen/oxyCODONE 325-5 MG Tab PO PRN ×2 (02:45→09:49)
[2020-06-26] MEDS: Ibuprofen 800 MG Tab PO PRN (06:13)
--- NOTE | 2020-06-26 07:28 | PCM.PNPP ---
<Joaquim Cuba - Last Filed: 06/26/20 07:22> - General Info Date of Service: 06/26/20 Functional Status: Reports: Pain Controlled, Tolerating Diet, Ambulating, Urinating, Other (Evans is out and she's been voiding) - Review of Systems General: Reports: No Symptoms, Other (Denies weakness, fever or chills) HEENT: Reports: No Symptoms Pulmonary: Reports: No Symptoms Cardiovascular: Reports: No Symptoms Gastrointestinal: Reports: No Symptoms Genitourinary: Reports: No Symptoms Musculoskeletal: Reports: No Symptoms Skin: Reports: No Symptoms Neurological: Reports: No Symptoms Psychiatric: Reports: No Symptoms - General Info Date of Service: 06/26/20 - Patient Data Vital Signs - Most Recent: Last Vital Signs Temp 36.4 C 06/26/20 04:22 Pulse 89 06/26/20 04:22 Resp 16 06/26/20 04:22 BP 116/74 06/26/20 04:22 Pulse Ox 95 06/26/20 04:22 Weight - Most Recent: 87.09 kg I&O - Last 24 Hours: Intake & Output 06/25/20 06/26/20 06/26/20 22:59 06:59 14:59 Intake Total 2550 Output Total 1225 Balance 1325 Lab Results - Last 24 Hours: Laboratory Results - last 24 hr 06/25/20 06/25/20 Range/Units 07:40 07:40 Hgb 10.5 L (12.0-16.0) g/dL Hct 33.6 L (36.0-46.0) % Magnesium 5.2 H (1.8-2.4) mg/dL Med Orders - Current: Current Medications Bisacodyl (Dulcolax) 10 mg RECTAL ONETIME PRN PRN Reason: Constipation Diphenhydramine HCl (Benadryl) 25 mg IVPUSH Q6H PRN PRN Reason: Itching or Nausea Docusate Sodium (Colace) 100 mg PO BID [facility] Last Admin: 06/25/20 21:07 Dose: 100 mg Documented by: Emollient Ointment (Lansinoh Hpa) 0 gm TOP ASDIRECTED PRN PRN Reason: Sore Nipples Lactated Ringer's (Ringers, Lactated) 1,000 mls @ 125 mls/hr IV ASDIRECTED ELISABETH Last Admin: 06/24/20 15:14 Dose: 5 mls/hr Documented by: Oxytocin/Sodium Chloride (Oxytocin 30 Unit/500 Ml-Ns) 30 unit in 500 mls @ 999 mls/hr IV TITRATE ELISABETH; Protocol Tranexamic Acid 1,000 mg/ (Sodium Chloride) 110 mls @ 660 mls/hr IV ONETIME PRN PRN Reason: Bleeding Ibuprofen (Motrin) 800 mg PO Q8H PRN PRN Reason: mild pain or fever Last Admin: 06/26/20 06:13 Dose: 800 mg Documented by: Misoprostol (Cytotec) 1,000 mcg RECTAL ONETIME PRN PRN Reason: excessive bleeding Ondansetron HCl (Zofran) 4 mg IVPUSH Q4H PRN PRN Reason: Nausea/Vomiting Oxycodone/Acetaminophen (Percocet 325-5 Mg) 1 tab PO ONETIME PRN PRN Reason: Pain (moderate 4-6) Oxycodone/Acetaminophen (Percocet 325-5 Mg) 1 tab PO Q4H PRN PRN Reason: Pain (moderate 4-6) Oxycodone/Acetaminophen (Percocet 325-5 Mg) 2 tab PO Q4H PRN PRN Reason: Pain (moderate 4-6) Last Admin: 06/26/20 02:45 Dose: 2 tab Documented by: Oxytocin (Pitocin) 10 unit IM ASDIRECTED PRN PRN Reason: Excessive Vaginal Bleeding Discontinued Medications Calcium Gluconate (Calcium Gluconate) 1 gm IV ASDIRECTED PRN PRN Reason: respiratory distress Cefazolin Sodium (Ancef) Confirm Administered Dose 2 gm .ROUTE .STK-MED ONE Stop: 06/24/20 10:09 Citric Acid/Sodium Citrate (Bicitra Solution) 30 ml PO ONETIME ONE Stop: 06/24/20 12:01 Last Admin: 06/24/20 15:37 Dose: Not Given Documented by: Fentanyl (Sublimaze) 50 mcg IVPUSH Q5M PRN PRN Reason: Pain (severe 7-10) Stop: 06/25/20 12:08 Oxytocin/Sodium Chloride (Oxytocin 30 Unit/500 Ml-Ns) 30 unit in 500 mls @ 250 mls/hr IV TITRATE [facility] Cefazolin Sodium/Dextrose 2 gm (/ Premix) 50 mls @ 100 mls/hr IV ONETIME ONE Stop: 06/24/20 10:20 Last Admin: 06/24/20 15:37 Dose: Not Given Documented by: Lactated Ringer's (Ringers, Lactated) 1,000 mls @ 500 mls/hr IV BOLUS [facility] Last Admin: 06/24/20 11:50 Dose: 500 mls/hr Documented by: Sodium Chloride (Normal Saline) Confirm Administered Dose 20 mls @ as directed .ROUTE .STK-MED ONE Stop: 06/24/20 10:09 Magnesium Sulfate 4 gm/ Premix 100 mls @ 300 mls/hr IV BOLUS ONE Stop: 06/24/20 13:50 Last Admin: 06/24/20 15:14 Dose: 400 mls/hr Documented by: Magnesium Sulfate (Magnesium Sulfate In Water Premix) 20 gm in 500 mls @ 50 mls/hr IV ASDIRECTED [facility]; Protocol Last Admin: 06/25/20 01:47 Dose: 2 gm/hr, 50 mls/hr Documented by: Ketamine HCl (Ketalar) Confirm Administered Dose 500 mg .ROUTE .STK-MED ONE Stop: 06/24/20 12:53 Ketorolac Tromethamine (Toradol) Confirm Administered Dose 30 mg .ROUTE .STK-MED ONE Stop: 06/24/20 09:59 Ketorolac Tromethamine (Toradol) 30 mg IVPUSH Q6H [facility] Stop: 06/25/20 13:31 Last Admin: 06/25/20 15:13 Dose: 30 mg Documented by: Methylergonovine Maleate (Methergine) 0.2 mg IM ONETIME PRN PRN Reason: Excessive Vaginal Bleeding Midazolam HCl (Versed 1 Mg/Ml) Confirm Administered Dose 2 mg .ROUTE .STK-MED ONE Stop: 06/24/20 12:47 Morphine Sulfate (Duramorph Pf) Confirm Administered Dose 10 mg .ROUTE .STK-MED ONE Stop: 06/24/20 09:58 Nalbuphine HCl (Nubain) 2.5 mg IVPUSH Q3H PRN PRN Reason: Pruritis Stop: 06/25/20 12:09 Ondansetron HCl (Zofran) Confirm Administered Dose 4 mg .ROUTE .STK-MED ONE Stop: 06/24/20 09:59 Oxytocin (Pitocin) Confirm Administered Dose 20 unit .ROUTE .STK-MED ONE Stop: 06/24/20 09:59 Propofol (Diprivan 20 Ml) Confirm Administered Dose 200 mg .ROUTE .STK-MED ONE Stop: 06/24/20 12:39 Sodium Chloride (Saline Flush) 10 ml FLUSH ASDIRECTED PRN PRN Reason: Keep Vein Open Sodium Chloride (Saline Flush) 2.5 ml FLUSH ASDIRECTED PRN PRN Reason: Keep Vein Open Sodium Chloride (Normal Saline) 10 ml IV ASDIRECTED PRN PRN Reason: IV Use - Infant Interaction Infant Disposition, : at Bedside Interaction: Holding , Other (see below) (Nurse assessing baby at this time) Infant Feeding: Bottle Fed Infant Support Person: , Significant Other - Recovery Exam Fundal Tone: Firm Fundal Level: 1 Fingerbreadths Below Umbilicus Fundal Placement: Midline Lochia Amount: Scant, Small Lochia Color: Rubra/Red Perineum Description: Intact, Minimal Bruising/Swelling Episiotomy/Laceration: None Bladder Status: Voiding Urinary Elimination: Indwelling Catheter, Voided - Exam General: Alert, Oriented, Cooperative, No Acute Distress HEENT: Pupils Equal, Mucous Membr. Moist/[place] Neck: Supple, Trachea Midline, No JVD, No Thyromegaly, +2 Carotid Pulse wo Bruit Lungs: Clear to Auscultation, Normal Respiratory Effort Cardiovascular: Regular Rate, Regular Rhythm, No Murmurs GI/Abdominal Exam: Normal Bowel Sounds Extremities: Normal Inspection, Other (Minimal pedal edema, sequential compression devices are being used) Skin: Warm, Intact Wound/Incisions: Healing Well, No Drainage Neurological: No New Focal Deficit Psy/Mental Status: Alert, Normal Affect, Normal Mood - Problem List Review Problem List Initiated/Reviewed/Updated: Yes - Assessment Assessment:: PPD # 2 s/p repeat LTCS at 37 weeks due to preeclampsia (BP of 140s/80s-90s and protein/Cr ratio of 0.4) and persistent headache. BP now down to 116/74 this morning. - Plan Plan:: -Headache has been well controlled with pain medication; no preeclampsia symptoms. -Continue to monitor BP. -Prepare for discharge to home today. <Layne Sorto - Last Filed: 06/26/20 08:13> - General Info Subjective Update: Headache improved. Denies RUQ pain, vision changes, dizziness. Minimal bleeding. Pain controlled with oral pain medications. - Patient Data Vital Signs - Most Recent: Last Vital Signs Temp 36.4 C 06/26/20 07:38 Pulse 86 06/26/20 07:38 Resp 16 06/26/20 07:38 BP 113/60 06/26/20 07:38 Pulse Ox 95 06/26/20 07:38 I&O - Last 24 Hours: Intake & Output 06/25/20 06/26/20 06/26/20 22:59 06:59 14:59 Intake Total 2550 Output Total 1225 Balance 1325 Lab Results - Last 24 Hours: Laboratory Results - last 24 hr 06/25/20 Range/Units 07:40 Magnesium 5.2 H (1.8-2.4) mg/dL Med Orders - Current: Current Medications Bisacodyl (Dulcolax) 10 mg RECTAL ONETIME PRN PRN Reason: Constipation Diphenhydramine HCl (Benadryl) 25 mg IVPUSH Q6H PRN PRN Reason: Itching or Nausea Docusate Sodium (Colace) 100 mg PO BID [facility] Last Admin: 06/25/20 21:07 Dose: 100 mg Documented by: Emollient Ointment (Lansinoh Hpa) 0 gm TOP ASDIRECTED PRN PRN Reason: Sore Nipples Lactated Ringer's (Ringers, Lactated) 1,000 mls @ 125 mls/hr IV ASDIRECTED [facility] Last Admin: 06/24/20 15:14 Dose: 5 mls/hr Documented by: Oxytocin/Sodium Chloride (Oxytocin 30 Unit/500 Ml-Ns) 30 unit in 500 mls @ 999 mls/hr IV TITRATE [facility]; Protocol Tranexamic Acid 1,000 mg/ (Sodium Chloride) 110 mls @ 660 mls/hr IV ONETIME PRN PRN Reason: Bleeding Ibuprofen (Motrin) 800 mg PO Q8H PRN PRN Reason: mild pain or fever Last Admin: 06/26/20 06:13 Dose: 800 mg Documented by: Misoprostol (Cytotec) 1,000 mcg RECTAL ONETIME PRN PRN Reason: excessive bleeding Ondansetron HCl (Zofran) 4 mg IVPUSH Q4H PRN PRN Reason: Nausea/Vomiting Oxycodone/Acetaminophen (Percocet 325-5 Mg) 1 tab PO ONETIME PRN PRN Reason: Pain (moderate 4-6) Oxycodone/Acetaminophen (Percocet 325-5 Mg) 1 tab PO Q4H PRN PRN Reason: Pain (moderate 4-6) Oxycodone/Acetaminophen (Percocet 325-5 Mg) 2 tab PO Q4H PRN PRN Reason: Pain (moderate 4-6) Last Admin: 06/26/20 02:45 Dose: 2 tab Documented by: Oxytocin (Pitocin) 10 unit IM ASDIRECTED PRN PRN Reason: Excessive Vaginal Bleeding Discontinued Medications Calcium Gluconate (Calcium Gluconate) 1 gm IV ASDIRECTED PRN PRN Reason: respiratory distress Cefazolin Sodium (Ancef) Confirm Administered Dose 2 gm .ROUTE .STK-MED ONE Stop: 06/24/20 10:09 Citric Acid/Sodium Citrate (Bicitra Solution) 30 ml PO ONETIME ONE Stop: 06/24/20 12:01 Last Admin: 06/24/20 15:37 Dose: Not Given Documented by: Fentanyl (Sublimaze) 50 mcg IVPUSH Q5M PRN PRN Reason: Pain (severe 7-10) Stop: 06/25/20 12:08 Oxytocin/Sodium Chloride (Oxytocin 30 Unit/500 Ml-Ns) 30 unit in 500 mls @ 250 mls/hr IV TITRATE ELISABETH Cefazolin Sodium/Dextrose 2 gm (/ Premix) 50 mls @ 100 mls/hr IV ONETIME ONE Stop: 06/24/20 10:20 Last Admin: 06/24/20 15:37 Dose: Not Given Documented by: Lactated Ringer's (Ringers, Lactated) 1,000 mls @ 500 mls/hr IV BOLUS ELISABETH Last Admin: 06/24/20 11:50 Dose: 500 mls/hr Documented by: Sodium Chloride (Normal Saline) Confirm Administered Dose 20 mls @ as directed .ROUTE .STK-MED ONE Stop: 06/24/20 10:09 Magnesium Sulfate 4 gm/ Premix 100 mls @ 300 mls/hr IV BOLUS ONE Stop: 06/24/20 13:50 Last Admin: 06/24/20 15:14 Dose: 400 mls/hr Documented by: Magnesium Sulfate (Magnesium Sulfate In Water Premix) 20 gm in 500 mls @ 50 mls/hr IV ASDIRECTED ELISABETH; Protocol Last Admin: 06/25/20 01:47 Dose: 2 gm/hr, 50 mls/hr Documented by: Ketamine HCl (Ketalar) Confirm Administered Dose 500 mg .ROUTE .STK-MED ONE Stop: 06/24/20 12:53 Ketorolac Tromethamine (Toradol) Confirm Administered Dose 30 mg .ROUTE .STK-MED ONE Stop: 06/24/20 09:59 Ketorolac Tromethamine (Toradol) 30 mg IVPUSH Q6H ELISABETH Stop: 06/25/20 13:31 Last Admin: 06/25/20 15:13 Dose: 30 mg Documented by: Methylergonovine Maleate (Methergine) 0.2 mg IM ONETIME PRN PRN Reason: Excessive Vaginal Bleeding Midazolam HCl (Versed 1 Mg/Ml) Confirm Administered Dose 2 mg .ROUTE .STK-MED ONE Stop: 06/24/20 12:47 Morphine Sulfate (Duramorph Pf) Confirm Administered Dose 10 mg .ROUTE .STK-MED ONE Stop: 06/24/20 09:58 Nalbuphine HCl (Nubain) 2.5 mg IVPUSH Q3H PRN PRN Reason: Pruritis Stop: 06/25/20 12:09 Ondansetron HCl (Zofran) Confirm Administered Dose 4 mg .ROUTE .STK-MED ONE Stop: 06/24/20 09:59 Oxytocin (Pitocin) Confirm Administered Dose 20 unit .ROUTE .STK-MED ONE Stop: 06/24/20 09:59 Propofol (Diprivan 20 Ml) Confirm Administered Dose 200 mg .ROUTE .STK-MED ONE Stop: 06/24/20 12:39 Sodium Chloride (Saline Flush) 10 ml FLUSH ASDIRECTED PRN PRN Reason: Keep Vein Open Sodium Chloride (Saline Flush) 2.5 ml FLUSH ASDIRECTED PRN PRN Reason: Keep Vein Open Sodium Chloride (Normal Saline) 10 ml IV ASDIRECTED PRN PRN Reason: IV Use - Exam Neck: Supple - Problem List & Annotations (1) Preeclampsia SNOMED Code(s): 881831087 Code(s): O14.90 - UNSPECIFIED PRE-ECLAMPSIA, UNSPECIFIED TRIMESTER Status: Acute Current Visit: Yes (2) S/P repeat low transverse SNOMED Code(s): 263875048, [id number], 403047900, [id number], [id number] Code(s): Z98.891 - HISTORY OF UTERINE SCAR FROM PREVIOUS SURGERY Status: Acute Current Visit: Yes - Plan Plan:: I have reviewed and agree with the above. POD#2 s/p repeat delivery for preeclampsia. Has incision/BP check in clinic next week. Reviewed discharge instructions and preeclampsia precautions. Discharge home today.
[2020-06-26] MEDS: Docusate Sodium 100 MG Cap PO SCH (09:49)
== END 2020-06-26 13:20 | disposition home or self-care (01) | DRG 788 ==
LOC: MW.OB 08:58
PROVIDERS: ADMIT Obstetrics & Gynecology; ATTEND Obstetrics & Gynecology
PROC: 10D00Z1 Extraction of Products of Conception, Low, Open Approach (ICD-10-PCS; principal; 2020-06-24)
DX: O34.211 Maternal care for low transverse scar from previous cesarean delivery (principal); Z3A.37 37 weeks gestation of pregnancy; Z37.0 Single live birth; O14.04 Mild to moderate pre-eclampsia, complicating childbirth; Z91.040 Latex allergy status; Z88.2 Allergy status to sulfonamides
CPT/HCPCS: 01961; 36415; 59025; 82803; 83735; 85014; 85018; 85027; 85460; 86592; 86850; 86900; 86901; A9270-GY; J0690; J1885; J2250; J2270; J2405; J2590; J2704; J2792; J3475; J7120